=== PATIENT | male | born 1960 | race Caucasian/White ===

== ENCOUNTER 2016-05-13 20:44 | Inpatient (IN) | payer MEDICAID, OTHER ==
--- NOTE | 2016-05-13 21:53 | ED ---
General Adult HPI - General Chief complaint: Psychiatric Symptoms Stated complaint: mental health Time Seen by Provider: 05/13/16 21:21 Source: patient, police, RN notes reviewed, old records reviewed Mode of arrival: ambulatory Limitations: no limitations - History of Present Illness Initial comments: This is a 35-year-old male ER for evaluation. Patient today presents for evaluation for psychiatric issues. Patient is brought in uncorked ordered petition. Patient coming in denies drug or alcohol. History of psychiatric disease. - Related Data Home Medications Medication Instructions Recorded Confirmed ARIPiprazole [Abilify] 30 mg PO DAILY 05/13/16 05/13/16 Naproxen 500 mg PO Q12H PRN 05/13/16 05/13/16 lamoTRIgine [LaMICtal] 100 mg PO DAILY 05/13/16 05/13/16 Allergies Allergy/AdvReac Type Severity Reaction Status Date / Time No Known Allergies Allergy Verified 05/13/16 21:38 Review of Systems ROS Statement: Those systems with pertinent positive or pertinent negative responses have been documented in the HPI. ROS Other: All systems not noted in ROS Statement are negative. Past Medical History Past Medical History: No Reported History Additional Past Medical History / Comment(s): BROKEN RIB History of Any Multi-Drug Resistant Organisms: None Reported Past Surgical History: No Surgical Hx Reported Past Psychological History: Anxiety, Bipolar, Depression Smoking Status: Former smoker Past Alcohol Use History: None Reported Past Drug Use History: Marijuana General Exam Limitations: no limitations General appearance: alert, in no apparent distress Head exam: Present: atraumatic, normocephalic, normal inspection Eye exam: Present: normal appearance, PERRL, EOMI. Absent: scleral icterus, conjunctival injection, periorbital swelling ENT exam: Present: normal exam, mucous membranes moist Neck exam: Present: normal inspection. Absent: tenderness, meningismus, lymphadenopathy Respiratory exam: Present: normal lung sounds bilaterally. Absent: respiratory distress, wheezes, rales, rhonchi, stridor Cardiovascular Exam: Present: regular rate, normal rhythm, normal heart sounds. Absent: systolic murmur, diastolic murmur, rubs, gallop, clicks GI/Abdominal exam: Present: soft, normal bowel sounds. Absent: distended, tenderness, guarding, rebound, rigid Extremities exam: Present: normal inspection, full ROM, normal capillary refill. Absent: tenderness, pedal edema, joint swelling, calf tenderness Back exam: Present: normal inspection Neurological exam: Present: alert, oriented X3, CN II-XII intact Psychiatric exam: Present: normal affect, normal mood Skin exam: Present: warm, dry, intact, normal color. Absent: rash Course Vital Signs 05/13/16 20:57 Temperature 97.8 F Pulse Rate 128 H Respiratory 20 Rate Blood Pressure 174/84 O2 Sat by Pulse 97 Oximetry - Reevaluation(s) Reevaluation #1: 05/13/16 21:52 Patient's medically clear for psychiatric evaluation Reevaluation #2: 05/14/16 00:05 Patient denies psychiatric disease or suicidal thoughts Medical Decision Making - Medical Decision Making 55 male seen and evaluated psychiatry, will be admitted for psychiatric evaluation and treatment Disposition Clinical Impression: Bipolar disorder, Acute psychosis Disposition: ADMITTED IP TO THIS [facility] Condition: Fair Referrals: Leida Forrest MD [Primary Care Provider] - 1-2 days
[2016-05-14] MEDS ORDERED: MAG HYDROX/AL HYDROX/SIMETH 30 ML CUP PO PRN (00:40)
[2016-05-14] MEDS ORDERED: ACETAMINOPHEN TAB 325 MG TAB PO PRN (00:40)
[2016-05-14] MEDS ORDERED: MAGNESIUM HYDROXIDE 2,400 MG/10 ML CUP PO PRN (00:40)
[2016-05-14] MEDS ORDERED: ZIPRASIDONE 20 MG VIAL IM PRN (00:40)
[2016-05-14] MEDS ORDERED: NAPROXEN 250 MG TAB PO PRN (00:43)
[2016-05-14] MEDS ORDERED: LORazepam 2 MG/ML SYRINGE IM PRN (00:46)
[2016-05-14] MEDS ORDERED: LORazepam 1 MG TAB PO PRN (00:46)
[2016-05-14] MEDS: ARIPiprazole 15 MG TAB PO SCH (08:44)
[2016-05-14] MEDS: lamoTRIgine 100 MG TAB PO SCH (08:44)
[2016-05-14] MEDS ORDERED: HALOPERIDOL LACTATE 5 MG/ML 1 ML VIAL IM PRN (17:06)
[2016-05-14] MEDS ORDERED: HALOPERIDOL 5 MG TAB PO PRN (17:07)
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
[2016-05-15] MEDS: lamoTRIgine 100 MG TAB PO SCH (08:40)
[2016-05-15] MEDS: ARIPiprazole 15 MG TAB PO SCH (08:40)
--- NOTE | 2016-05-15 11:34 | P.PN ---
Subjective Psychiatric progress notes. Patient is a 55-year-old gentleman who is on a petition and clinical certificate has been refusing any medications at present and asserted that he will not be taking any, just because he is thinking different from other people. Reports he slept well and there according to him he had talked reports his sisters though he is angry with his sister who is the guardian. He also seemed to called all his 3 sons and stated that the conversation went very well. He stated that his part [place] and that his native was displaced. On the unit patient is pacing back and forth and interacting with peers. When asked about his plan to buy a $43,000 truck his answer was that he fell in love with that truck and added that where there is a will that is a way. Mental status. Somewhat thin built gentleman who wears his own clothes and comes on his own to meet with me and talk about things. Patient spontaneously talk about things of interest to him for example about flower of life. But did not elaborate what that meant for him. Continues to have the intense stare during his conversation. Attention and concentration could be aroused and sustained for short periods of time as patient gets preoccupied, but would not elaborate what he is thinking about. Irrational thinking and behavior continues though his speech and thought process did not show significant abnormal traits. No evidence of any psychotic features. Patient lacks insight and judgment. Objective - Vital Signs Vital signs: Vital Signs Temp 97.7 F 05/14/16 00:45 Pulse 115 H 05/15/16 04:54 Resp 16 05/15/16 04:54 BP 149/89 05/15/16 04:54 Pulse Ox 99 05/14/16 00:45
[2016-05-16] MEDS: ARIPiprazole 15 MG TAB PO SCH (09:22)
[2016-05-16] MEDS: lamoTRIgine 100 MG TAB PO SCH (09:22)
--- NOTE | 2016-05-16 13:51 | P.PN ---
Subjective Psychiatric progress notes. Mr. Winters has not shown any significant behavioral problems on the unit, though his family informed psychiatric social worker supervisor that he has been calling them so many times per day demanding to be released and today seems to have told them that he was discharged. Patient has been refusing any medication but has been at times compliant in participation of made based treatment activities. Patient reports that he slept well. According to him he has been doing well and rationalizes his for chasing supplements as he does not like any product where antibiotics were used, or chemicals were used as fertilizations. Vision wants only organic foods and wants to live long life so that he can enjoy his grandchildren. Some of his believes are held by many other people in the community but his seems to be going to the extreme and appears to be part of his manic thinking. According to him he does not have any problems that require medication, off each is against anyway. Mental status. Somewhat thin built gentleman dressed in his own clothes comes readily for the evaluation and during the period was pleasant and justifying his decision of buying certain food supplements for his own health and longevity. Often patient is noticed to pacing the floor but as noted before no abnormal behaviors have been observed yet attention and concentration aroused and sustained. Speech and thought process did not show any abnormal traits though his thought content shows his certain degree of preoccupation with health related concerns, and thoughts of wanting to buy things which may look as inappropriate and unnecessary. Patient stated that he sleeps well and has good appetite. His memory functions orientation and General Information are without any deficits at this time. Limited in insight and judgment. Continue the current treatment plans will court adjudication at which time patient may be prescribed and given appropriate medications. Objective - Vital Signs Vital signs: Vital Signs Temp 98.0 F 05/16/16 05:27 Pulse 70 05/16/16 05:27 Resp 16 05/16/16 05:27 BP 130/78 05/16/16 05:27 Pulse Ox 99 05/14/16 00:45
[2016-05-17] MEDS: lamoTRIgine 100 MG TAB PO SCH (09:13)
[2016-05-17] MEDS: ARIPiprazole 15 MG TAB PO SCH (09:13)
--- NOTE | 2016-05-17 19:38 | P.PN ---
Progress Note - Text Interval history: Patient seen in cross coverage today for Dr. Graham. He states that he is not taking his prescribed medications. He does not want to take medication. He makes reference to marijuana being his medication. He says the marijuana calms him. He relates that the marijuana does not cause him any problems. He describes an episode approximately 10 years ago where he came off of marijuana and he had a bipolar like episode. He does state that he slept last night, he says he is eating well. Mental status exam: Patient is alert and cooperative. His speech is fluent, not rapid or pressured. Thought processes overall are organized. He describes his mood as good. He denies any thoughts of harm to self or others. He does not verbalize any hallucinations. He does not show any agitation. Plan: Patient is given education regarding considering initiating the psychotropic medication. We'll continue to monitor for any medication compliance. Continue to cover this patient for Dr. Graham through the weekend.
[2016-05-17 22:57] VITALS: BMI 23.9
[2016-05-18] MEDS: ARIPiprazole 15 MG TAB PO SCH (09:32)
[2016-05-18] MEDS: lamoTRIgine 100 MG TAB PO SCH (09:32)
--- NOTE | 2016-05-18 20:28 | P.PN ---
Progress Note - Text Interval history: Patient seen in cross coverage today for Dr. Graham. He is seen in the dining room, refuses to come meet with me for interview today. Mental status exam: He is found in the dining room, refuses to come meet with me for the interview today. He is not showing any current agitation. Plan: Continue to monitor for medication compliance. Continue to encourage to engage in treatment milieu.
[2016-05-19] MEDS: lamoTRIgine 100 MG TAB PO SCH (10:09)
[2016-05-19] MEDS: ARIPiprazole 15 MG TAB PO SCH (10:09)
--- NOTE | 2016-05-19 16:43 | P.PN ---
Progress Note - Text CLINICAL PROBLEMS: Mr. Winters is a 55-year-old male who has a history of bipolar disorder. He presented to the psychiatric unit involuntarily with signs and symptoms of atilio. He is refusing treatment and we're awaiting a probate hearing for involuntary hospitalization. 24 HOUR EVENTS: He continues to refuse prescribed psychotropic medication. EXAMINATION: He presented as a thin casually groomed 55-year-old male. He was reluctant but agreed to the interview. He made eye contact and appeared to attend to interview. He had no distinguishing features or prominent physical abnormalities. He had a distressed facial expression. He was alert and oriented to person, place and time. He was restless and agitated but displayed no abnormal involuntary movements. His speech was rapid with increased rate and rhythm. He had no articulation difficulties. His affect was irritable and angry. He denied suicidal ideation, wishes or homicidal ideation. He denied feeling hopeless or helpless. He denied ideas of reference. He perseverated on his court papers specifically the area where his former psychiatrist indicated that he is cognitively impaired as a result of age. His thinking was concrete and associations were not coherent or logical. He denied hallucinations and did not appear to be responding to internal stimuli. He agrees that he has a mental illness but denies need for treatment. PERTINENT DATA: He refused to meet with his court appointed president financial institution today regarding the involuntary commitment hearing. ASSESSMENT: He has a history of bipolar disorder and has signs and symptoms consistent with a manic/hypomanic episode. He is irritable, suspicious and uncooperative. He is refusing prescribed psychotropic medication. PLAN: Continue with probate hearing and request a 60/90 day combined involuntary treatment in order.
[2016-05-20] MEDS: lamoTRIgine 100 MG TAB PO SCH (09:36)
[2016-05-20] MEDS: ARIPiprazole 15 MG TAB PO SCH (09:36)
--- NOTE | 2016-05-20 15:45 | P.PN ---
Progress Note - Text CLINICAL PROBLEMS: Mr. Winters was angry this morning. He accused me of "lying" on the clinical certificate that I completed yesterday. 24 HOUR EVENTS: He slept 3 hours last night. EXAMINATION: He presented as a thin restless and irritable elderly male. He did not cooperate with examination refused to come into my office for interview. PERTINENT DATA: He had a probate hearing this afternoon for involuntary hospitalization and I requested a 60/90 day combined involuntary treatment order. ASSESSMENT: He continues show signs and symptoms of atilio/hypomania and is refusing all treatment. PLAN: Begin a mood stabilizer after received the involuntary treatment order. I would prefer to restart prior medications but if he remains uncooperative we' ll begin with an antipsychotic/mood stabilizer that is available in an oral and intramuscular preparation.
[2016-05-21] MEDS: lamoTRIgine 100 MG TAB PO SCH (08:59)
[2016-05-21] MEDS: ARIPiprazole 15 MG TAB PO SCH ×2 (08:59→20:43)
--- NOTE | 2016-05-21 15:37 | P.PN ---
Progress Note - Text CLINICAL PROBLEMS: Is 55-year-old male who presented involuntarily with signs and symptoms of acute atilio. He has a history of bipolar disorder and has been noncompliant with prescribed psychotropic medications. He had a probate hearing on 05/20/2016 and received a 60/90 day combine treatment order. 24 HOUR EVENTS: According to nursing reports she did not sleep last night. He took the prescribed dose of Abilify and Lamictal this morning (the first time since admission). EXAMINATION: He was put pleasant on approach but would not come into my office for an interview. His affect appeared elevated and he was laughing and joking with staff and peers. PERTINENT DATA: Therapy staff reports that he attended group briefly (for the first time since admission). ASSESSMENT: After the involuntary hospitalization hearing he received a 60/90 day combined treatment order. He is now taking prescribed psychotropic medications and attempting to dissipate in therapeutic groups and activities. PLAN: Continue Lamictal 100 mg daily but change the Abilify dosing to 15 mg at bedtime and discuss transition to Abilify Maintena. Continue Geodon 20 mg IM twice a day and lorazepam 1 mg by mouth/IM every 8 hours when necessary for acute agitation. Discontinue when necessary haloperidol 5 mg. Continue to encourage participation in therapeutic groups and activities. Monitor compliance with medications. Evaluate clinical status and response to treatment on a daily basis.
[2016-05-22] MEDS: lamoTRIgine 100 MG TAB PO SCH (09:40)
--- NOTE | 2016-05-22 16:51 | P.PN ---
Progress Note - Text CLINICAL PROBLEMS: He is a middle-aged male who has history of bipolar disorder and noncompliance with treatment. He is currently under a 90 day combined involuntary treatment order and agreed to resume his psychotropic medications only after court hearing. I inquired why he refused to take his medications until he was court ordered. He talked about his concern regarding long-term effects of the medication and expressed the belief that he does not require treatment or has a mental illness. He declined to transition from oral Abilify to Abilify [place] 24 HOUR EVENTS: He has been compliant with prescribed psychotropic medication. He is posed no management problem and demonstrated no episodes of behavioral dyscontrol. He slept only 2 hours last night and the: He does not take naps during the day. EXAMINATION: He came into my office for the interview. He presented as a thin pale appearing middle-aged man who was pleasant on approach. He maintained eye contact and appeared to attend to the interview. He had a bright facial expression. He was alert and oriented to person, place and time. He was restless but showed no abnormal movements. His speech was rapid with increased rate and rhythm. His affect was elevated but not inappropriate or intents. He denied suicidal ideation or wishes. He denied depressive cognitions. He denied ideas of reference and did not express paranoid ideation. His thinking was concrete and associations were not fully coherent and logical. He denied hallucinations and did not appear to be responding to internal stimuli. PERTINENT DATA: He is attending therapeutic groups and activities. ASSESSMENT: He showed minimal improvement of his bipolar illness. However, he is now compliant with prescribed psychotropic medications. PLAN: Continue Abilify 15 mg per day and Lamictal 100 mg daily. Encouraged continued participation in therapeutic groups and activities. Evaluate clinical status response to treatment on a daily basis.
[2016-05-22] MEDS: ARIPiprazole 15 MG TAB PO SCH (21:22)
[2016-05-23] MEDS: lamoTRIgine 100 MG TAB PO SCH (09:43)
--- NOTE | 2016-05-23 14:06 | P.PN ---
Progress Note - Text CLINICAL PROBLEMS: He is a middle-aged male who has history of bipolar disorder and noncompliance with treatment. He is currently under a 90 day combined involuntary treatment order and agreed to resume his psychotropic medications only after court hearing. He denied side effects to Abilify and Lamictal. He stated that he has "no problems" taking these medications. 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 He boasted about his accomplishments and the quality of his work. 24 HOUR EVENTS: He has been compliant with prescribed psychotropic medication. He is posed no management problem and demonstrated no episodes of behavioral dyscontrol. He slept 4 hours last night and the: He does not take naps during the day. EXAMINATION: He presented as a thin pale appearing middle-aged man who was pleasant on approach. He maintained eye contact and appeared to attend to the interview. He had a bright facial expression. He was alert and oriented to person, place and time. He was restless but showed no abnormal movements. His speech was rapid with increased rate and rhythm. His affect was elevated but not inappropriate or intense. He denied suicidal ideation or wishes. He denied depressive cognitions. He denied ideas of reference and did not express paranoid ideation. His thinking was concrete and associations were not fully coherent and logical. He denied hallucinations and did not appear to be responding to internal stimuli. PERTINENT DATA: He has not required when necessary medications. He is attending therapeutic groups and activities but her therapist describes him as restless. ASSESSMENT: He has shown minimal to moderate improvement of his bipolar illness. PLAN: Continue Abilify 15 mg per day and Lamictal 100 mg daily. Encouraged continued participation in therapeutic groups and activities. Evaluate clinical status response to treatment on a daily basis.
[2016-05-23] MEDS: ARIPiprazole 15 MG TAB PO SCH (21:11)
[2016-05-24] MEDS: lamoTRIgine 100 MG TAB PO SCH (09:38)
--- NOTE | 2016-05-24 10:11 | P.PN ---
Progress Note - Text Interval history: The patient is found in the hallway he follows me to an interview room. He is being seen today in coverage for Dr. Guerra. The patient has a known history of bipolar disorder and is currently on a treatment order. He is being managed with Abilify and Lamictal. The patient states he's doing well with these medications he is endorsing no side effects from them. He states he likes being here in the hospital as he lives alone in this is an opportunity for him to socialize. He begins asking me questions about the relationship of Tylenol, vaccines, and autism in children. There is no report from staff that he is demonstrating any aggressive behavior or agitation. Mental status exam: The patient is a thin pale balding male appearing his stated age. He is dressed in his own clothing he is mildly disheveled. Eye contact is appropriate he is pleasant and cooperative. In terms of speech he is verbose there is an increased volume of speech but he maintains inappropriate tone and he is not particularly pressured. Thought process vacillates between being circumstantial and tangential. He reports no suicidal or homicidal ideation he is endorsing no auditory or visual hallucinations. He states he feels safe here in the hospital now indicating he may have had some paranoid thinking previously. There is no demonstration of verbal or physical aggressiveness. Insight and judgment are limited but likely improving during the course of this hospitalization. No evidence of EPS. Plan: The patient will continue on the Abilify and Lamictal as written. Vital signs reviewed. We will continue to monitor him for safety and encourage his participation in the milieu. He requires continued hospitalization for further stabilization of his manic symptoms.
[2016-05-24 17:15] LABS: Appearance,Urine Clear (Clear); Bilirubin,Urine Negative (Negative); Glucose,Urine (UA) Negative (Negative); Ketones,Urine Negative (Negative); Leukocyte Esterase,Urine Negative (Negative); Nitrite,Urine Negative (Negative); PH, Urine 6.5 (5.0-8.0); Protein,Urine Negative (Negative); UA Billing (MACRO vs. MICRO) CHEM; Urobilinogen,Urine <2.0 mg/dL (<2.0)
[2016-05-24] MEDS: ARIPiprazole 15 MG TAB PO SCH (20:53)
[2016-05-25] MEDS: lamoTRIgine 100 MG TAB PO SCH (09:27)
--- NOTE | 2016-05-25 10:52 | P.PN ---
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 He reports his mood is good and he states he is "consistent as I have always been". He reports sleeping through the night getting at least 7 hours. Appetite stable. He has been participating in the milieu without any agitated behavior. He has no questions or concerns regarding his medication. Mental status exam: The patient is a thin male appearing his stated age. He is dressed in his own clothing eye contact is appropriate. He is seated calmly in the chair without any psychomotor agitation. Speech is fluent spontaneous nonpressured his thought process is more organized today compared to yesterday. He is not intrusive in conversation and provides linear answers to questions asked. He is reporting no acute suicidal or homicidal ideation he is endorsing no hallucinations or specific delusions. Insight and judgment improving. Plan: The patient will continue on his current psychotropic medications. We will monitor him for safety and encourage his participation in the milieu. Dr. Guerra will assume his care again tomorrow. Vital signs reviewed.
[2016-05-25] MEDS: ARIPiprazole 15 MG TAB PO SCH (21:36)
[2016-05-26] MEDS: lamoTRIgine 100 MG TAB PO SCH (08:49)
[2016-05-26] MEDS ORDERED: QUEtiapine 100 MG TAB PO PRN (10:14)
--- NOTE | 2016-05-26 13:23 | P.PN ---
Progress Note - Text SUBJECTIVE: Mr. Winters complained that he only slept "5 hours" last night ( according to the record he slept 3 hours). He denied side effects to the current dose of Abilify and Lamictal. He denied other problems or concerns. He was not anxious to be discharged. We discussed treatment options and he agreed to an increase in Abilify and Seroquel 100 mg at bedtime when necessary for insomnia. OBJECTIVE: He presented as a casually groomed thin pale appearing rider haired elderly male who was pleasant on approach. He maintained eye contact and attended to the interview. He had a blunted but bright facial expression. He is alert and oriented to person, place and time. He showed no abnormality of psychomotor activity; he was not agitated or restless. His speech was spontaneous with normal rate, rhythm and volume. His affect was blunted but stable and appropriate. He denied suicidal ideation or wishes. He denied depressive cognitions such as hopelessness, helplessness or worthlessness. He denied ideas of reference and did not express paranoid ideation. His thinking was concrete but his associations were logical and coherent. He denied hallucinations and did not appear to be responding to internal stimuli. ASSESSMENT: He appears much less agitated and euphoric that he was on admission. However, he is only sleeping 2-3 hours per night. He is shown a partial response to treatment with a reduction of many of the presenting symptoms of atilio/hypomania. There is no evidence of psychosis. PLAN: Increase Abilify to 20 mg at bedtime, continue Lamictal 100 mg daily and begin Seroquel 100 mg at bedtime when necessary for sleep. Encouraged continued participation in therapeutic groups and activities. Evaluate clinical status and response to treatment on a daily basis
[2016-05-27 01:13] VITALS: RESP 16
[2016-05-27] MEDS: lamoTRIgine 100 MG TAB PO SCH (09:02)
[2016-05-27] MEDS ORDERED: diphenhydrAMINE 25 MG CAP PO PRN (10:26)
--- NOTE | 2016-05-27 11:46 | P.PN ---
Progress Note - Text SUBJECTIVE: He complained of feeling bad after taking the at bedtime dose of quetiapine and asked to have something else prescribed if he is unable to fall asleep. He admitted to sleeping only 2 hours last night. He denies feeling tired or fatigued. We talked about the circumstances leading to this admission including the allegation that he was overspending. He argued that he needed a new truck and his decision to was reasonable. He consented to allow me to speak with his sister (who was the petitioner). OBJECTIVE: He presented as a thin pale appearing 55-year-old man with an unkept short baptiste. He was pleasant on approach and attended to the interview. According to the EMR he slept 2 hours last night. He had a blunted but bright facial expression. He was alert and oriented to person, place and time. He showed no abnormality of psychomotor behavior. He was not agitated or restless. His speech was spontaneous with slight increase in rate but normal rhythm and volume. His affect was stable and appropriate. He was not irritable , argumentative, demanding or euphoric. He denied suicidal ideation or wishes. He denied homicidal ideation. He denied depressive cognitions such as hopelessness, helplessness and worthlessness. He denied obsessions or ruminations. He denied ideas of reference and did not express paranoid ideation. He did not express grandiose ideation. His thinking was concrete but his associations were coherent and logical. He did not demonstrate clang associations, perseveration or neologisms. He denied hallucinations and did not appear to be responding to internal stimuli. There is no answer when I tried to call his sister. ASSESSMENT: He has been compliant with medication and is posed no management problem. He has demonstrated no self-harm behaviors or behavioral dyscontrol. He continues to show decreased need for sleep and has limited understanding of the circumstances that led to this involuntary hospitalization. PLAN: Increase Lamictal to 200 mg daily, continue Abilify 20 mg daily, discontinue quetiapine 100 mg at bedtime and begin a trial of diphenhydramine 25 mg at bedtime when necessary for sleep. Continue attempts to speak with his sister regarding the circumstances that led to this hospitalization. Encourage continued participation in therapeutic groups and activities. Evaluate clinical status and response to treatment on a daily basis.
[2016-05-28 06:31] VITALS: BP 141/82; PULSE 80; TEMP 97.5
[2016-05-28] MEDS ORDERED: lamoTRIgine 100 MG TAB PO SCH (09:00)
--- NOTE | 2016-05-28 13:18 | P.DS ---
Providers Date of admission: 05/14/16 00:24 Attending physician: Benji Guerra MD Consults: 05/14/16 00:40 Consult Physician Routine Consulting Provider: Jacklyn Fox Consult Reason/Comments: H&P and medical management Do you want consulting provider notified?: Yes, Notify in am Primary care physician: Leida Forrest - Discharge Diagnosis(es) (1) Bipolar disorder, most recent episode manic Current Visit: Yes Status: Chronic Priority: High (2) Poor compliance with medication Current Visit: Yes Status: Chronic Priority: High (3) Involuntary commitment Current Visit: Yes Status: Acute Priority: High Hospital Course: Mr. Winters is a 55-year-old male who has history of a bipolar disorder. He presented to unit involuntarily with signs and symptoms consistent with an acute manic episode. According to his sister, who was the petitioner, he demonstrated a marked change in his behavior after he discontinued his psychiatric medications. He was more irritable, suspicious and restless. He became preoccupied with conspiracy theories. He was spending excessively on dietary supplements and attempted to purchase an expensive pickup truck. On presentation to the unit he was irritable, restless and angry. He did not sleep for several days. He was uncooperative and refused to resume his prescribed psychotropic medications: Lamictal and Abilify. He had a probate hearing on 05/20/2015 and received a 60/90 day combined treatment order. After the probate hearing he resumed his outpatient medications voluntarily. He participated intermittently in therapeutic groups and activities. Therapy staff described him as a restless and impulsive. He posed no management problem and displayed no episodes of behavioral dyscontrol. After resuming Lamictal and Abilify his level of irritability, suspiciousness and restlessness decreased. Prior to discharge she was sleeping 4-5 hours per night. We increased his Lamictal to 200 mg per day but decreased the Abilify to 20 mg. At time of discharge he was pleasant on approach. He had periods of restlessness and at times was hyperverbal. However, he was not angry, irritable or impulsive. He continued to deny the need for this hospitalization but agreed to continue with outpatient mental health treatment including to prescribe psychotropic medications. Patient Condition at Discharge: Fair Plan - Discharge Summary New Discharge Prescriptions: ARIPiprazole [Abilify] 20 mg PO HS #30 tab lamoTRIgine [LaMICtal] 200 mg PO DAILY #30 tab Discharge Medication List Naproxen 500 mg PO Q12H PRN 05/13/16 [History] ARIPiprazole [Abilify] 20 mg PO HS #30 tab 05/28/16 [Rx] lamoTRIgine [LaMICtal] 200 mg PO DAILY #30 tab 05/28/16 [Rx] Follow up Appointment(s)/Referral(s): [facility] [Outside] - 05/30/16 10:00 am ([address] [place] [address] Intake 05/30/16 at 10:00 am w/ Lesa) Leida Forrest MD [Primary Care Provider] - 1-2 days Discharge Disposition: HOME SELF-CARE
== END 2016-05-28 17:20 | disposition home or self-care (01) | DRG 885 ==
LOC: EC 20:44 → SUPCPDRO 20:44 → 3MHU 05-14 00:24
PROVIDERS: ADMIT Psychiatry & Neurology Psychiatry; ATTEND Psychiatry & Neurology Psychiatry
DX: F31.9 Bipolar disorder, unspecified (principal); Z91.14 Patient's other noncompliance with medication regimen; F12.10 Cannabis abuse, uncomplicated; Z87.891 Personal history of nicotine dependence; Z91.19 Patient's noncompliance with other medical treatment and regimen
CPT/HCPCS: 80306; 81003; 82075; 99285

== ENCOUNTER → 2019-01-14 | Outpatient (CLI) | payer OTHER ==
--- NOTE | 2019-01-31 22:39 | MR ---
EXAMINATION TYPE: MR humerus RT wo con DATE OF EXAM: 01/31/2019 COMPARISON: None HISTORY: Other rupture of muscle Standard multiplanar, multisequence MRI departmental protocol Multiplanar, multisequence images of the right humerus were acquired. FINDINGS: The right humerus appears intact with no bony destructive process. There is no sign of a fr acture. Muscle bundles of the right upper arm appear intact. On the T2 images there is very slight in creased signal in the anterior biceps muscle with the T2 axial sequence. There is no discrete fluid c ollection. IMPRESSION: No fracture. No evidence of a hematoma. There is mild anterior biceps muscle increased signal on the T2 images that could relate to edema or bruising. No discrete mass.
== END | disposition home or self-care (01) ==
LOC: RADMRIMAIN 08:02
PROVIDERS: ATTEND Family Medicine
DX: R93.7 Abnormal findings on diagnostic imaging of other parts of musculoskeletal system (principal); M62.121 Other rupture of muscle (nontraumatic), right upper arm

== ENCOUNTER → 2020-12-12 | Outpatient (CLI) | payer OTHER ==
--- NOTE | 2020-12-13 03:08 | MR ---
EXAMINATION TYPE: MR shoulder RT wo con DATE OF EXAM: 12/12/2020 COMPARISON: None HISTORY: Right shoulder pain and limited range of movement for 2 months. Multiplanar multiecho imaging of the right shoulder without contrast. There is hypertrophic spurring at the AC joint. There is no significant subacromial impingement. The supraspinatus tendon appears intact. There is no retraction. There is a 5 mm degenerative cysts at th e anterior and lateral greater tuberosity of the humerus. The glenoid danilo appear intact. Subscapula ris tendon is intact. Biceps tendon is intact. I see no focal bone destruction. IMPRESSION: Degenerative cysts in the greater tuberosity of the humerus. No evidence of rotator cuff tear. No sig nificant subacromial impingement.
== END | disposition home or self-care (01) ==
LOC: RADMRIMAIN 21:38
PROVIDERS: ATTEND Orthopaedic Surgery
DX: M85.611 Other cyst of bone, right shoulder (principal)